=== PATIENT | male | born 1990 | race Caucasian/White ===

== ENCOUNTER 2018-06-24 17:12 | Emergency (ER) | payer OTHER ==
[2018-06-24] MEDS ORDERED: Acetaminophen 500 MG Tab PO ONE (17:27)
--- NOTE | 2018-06-24 17:33 | EDM.PDOC ---
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 He has no other injuries such as proximal wrist forearm elbow or shoulder pain and he is right- hand dominant. The patient says that he did not fall to the ground pass out or blackout. He has no neurosensory changes in his fingers and his fingers do not hurt. Review of systems: As per history of present illness and below otherwise all systems reviewed and negative. Past medical history: As per history of present illness and as reviewed below otherwise noncontributory. Surgical history: As per history of present illness and as reviewed below otherwise noncontributory. Social history: No reported history of drug or alcohol abuse. Family history: As per history of present illness and as reviewed below otherwise noncontributory. Physical exam: General: Well-developed well-nourished man who is nontoxic and vital signs noted by me HEENT: Atraumatic, normocephalic, negative for conjunctival pallor or scleral icterus, mucous membranes moist, throat clear, neck supple, nontender, trachea midline. Lungs: Clear to auscultation, breath sounds equal bilaterally, chest nontender. Heart: S1S2, regular rate and rhythm no overt murmurs Abdomen: Deferred Pelvis: Deferred Genitourinary: Deferred. Rectal: Deferred. Extremities: Atraumatic, full range of motion of all stemming the exception of the right hand. On the dorsal aspect of the right hand at the second third metacarpals there is soft tissue swelling and a very superficial abrasion as well as some ecchymosis. The remainder of the hand is nontender and there is no evidence of any swelling on the palmar surface. Patient is able to range of motion all the digits and there is no proximal wrist forearm elbow or shoulder pain.. Neurovascular unremarkable. Neuro: Awake, alert, oriented. Cranial nerves II through XII unremarkable. Cerebellum unremarkable. Motor and sensory unremarkable throughout. Exam nonfocal. Diagnostics: Right hand x-ray Therapeutics: Tylenol sling Impression: Right hand contusion Definitive disposition and diagnosis as appropriate pending reevaluation and review of above. Right Hand Pain Score (Numeric/FACES): 8 - Related Data Allergies Allergy/AdvReac Type Severity Reaction Status Date / Time Sulfa (Sulfonamide Allergy Cannot Verified 06/24/18 17:28 Antibiotics) Remember Home Meds: Home Meds . [No Known Home Meds] 06/24/18 [History] Review of Systems - Review of Systems Review Of Systems: ROS reveals no pertinent complaints other than HPI. ED EXAM, GENERAL - Physical Exam Exam: See Below (See dictation) Course - Vital Signs Last Recorded V/S: Last Vital Signs Temp 36.3 C 06/24/18 17:25 Pulse 93 06/24/18 17:25 Resp 18 06/24/18 17:25 BP 154/103 H 06/24/18 17:25 Pulse Ox 96 06/24/18 17:25 - Orders/Labs/Meds Meds: Medications Discontinued Medications Generic Name Dose Route Start Last Admin Trade Name Fitoq PRN Reason Stop Dose Admin Acetaminophen 1,000 mg 06/24/18 17:27 06/24/18 17:38 Tylenol Extra Strength PO 06/24/18 17:28 1,000 mg ONETIME ONE Administration Departure - Departure Time of Disposition: 18:11 Disposition: Home, Self-Care 01 Condition: Good Clinical Impression: Contusion of hand Qualifiers: Encounter type: initial encounter Laterality: right Qualified Code(s): S60.221A - Contusion of right hand, initial encounter - Discharge Information Referrals: PCP,None [Primary Care Provider] - Forms: ED Department Discharge Additional Instructions: The following information is given to patients seen in the emergency department who are being discharged to home. This information is to outline your options for follow-up care. We provide all patients seen in our emergency department with a follow-up referral. The need for follow-up, as well as the timing and circumstances, are variable depending upon the specifics of your emergency department visit. If you don't have a primary care physician on staff, we will provide you with a referral. We always advise you to contact your personal physician following an emergency department visit to inform them of the circumstance of the visit and for follow-up with them and/or the need for any referrals to a consulting specialist. The emergency department will also refer you to a specialist when appropriate. This referral assures that you have the opportunity for followup care with a specialist. All of these measure are taken in an effort to provide you with optimal care, which includes your followup. Under all circumstances we always encourage you to contact your private physician who remains a resource for coordinating your care. When calling for followup care, please make the office aware that this follow-up is from your recent emergency room visit. If for any reason you are refused follow-up, please contact the [facility] emergency department at and ask to speak to the emergency department charge nurse. [facility] [address] [address] Ice and elevate the hand as much as possible and use [id number] ibuprofen/ Motrin or Tylenol for pain. Call and follow-up with our hand specialist as you choose in the next few days and return to ER as needed and as discussed.
--- NOTE | 2018-06-24 18:07 | CR ---
INDICATION: Crush injury TECHNIQUE: Right hand three views COMPARISON: None FINDINGS AND IMPRESSION: Normal alignment. No fracture. No focal soft tissue swelling. No degenerative changes. Dictated by Kathia Hansen MD @ 06/24/2018 6:05:17 PM Dictated by: Kathia Hansen MD @ 06/24/2018 18:05:22 (Electronically Signed)
== END 2018-06-24 18:18 | disposition home or self-care (01) ==
LOC: MW.ED 17:12
DX: S60.221A Contusion of right hand, initial encounter (principal); Z88.2 Allergy status to sulfonamides; W22.8XXA Striking against or struck by other objects, initial encounter
CPT/HCPCS: 73130; 99283; A9270